=== PATIENT | female | born 1965 | race Asian ===

== ENCOUNTER → 2021-10-02 15:39 | Outpatient (CLI) | payer OTHER, SELFPAY ==
--- NOTE | 2021-10-02 15:42 | DI.MG.S_ITS ---
BILATERAL DIGITAL SCREENING MAMMOGRAM 3D/2D WITH CAD: 10/02/2021 CLINICAL: Routine screening. Comparison is made to exams dated: 12/04/2018 mammogram, 11/11/2017 mammogram, and 09/23/2016 mammogram - outside location. There are scattered fibroglandular elements in both breasts. Current study was also evaluated with a Computer Aided Detection (CAD) system. There is a round asymmetry with an obscured and circumscribed margin and coarse calcifications in the left breast central to the nipple posterior depth. This is more prominent and increased in size. No other significant masses, calcifications, or other findings are seen in either breast. IMPRESSION: INCOMPLETE: NEEDS ADDITIONAL IMAGING EVALUATION The round asymmetry in the left breast is indeterminate. Additional views with possible ultrasound are recommended. This exam was interpreted at Station ID: [id number]. NOTE: For mammograms, a report in lay terms will be sent to the patient. Approximately 15% of breast malignancies will not be visualized mammographically. In the management of a palpable breast mass, a negative mammogram must not discourage biopsy of a clinically suspicious lesion. Electronically Signed By: Lisa [email or web address]:10/02/2021 17:07:31 letter sent: Additional Imaging Needed ACR BI-RADS Category 0: Incomplete 3340F
== END ==
PROVIDERS: Family Provider Family Medicine; PCP Family Medicine; Referring Provider Family Medicine; Visit Provider Family Medicine
DX: Z12.31 Encounter for screening mammogram for malignant neoplasm of breast (principal)
CPT/HCPCS: 77063; 77067

== ENCOUNTER → 2021-11-06 13:48 | Outpatient (CLI) | payer OTHER, SELFPAY ==
--- NOTE | 2021-11-06 | DI.MG.S_ITS ---
UNILATERAL LEFT DIGITAL DIAGNOSTIC MAMMOGRAM 3D/2D WITH ADDITIONAL VIEWS: 11/06/2021 CLINICAL: Additional evaluation requested from prior study. Comparison is made to exams dated: 10/02/2021 mammogram - [facility], 12/04/2018 mammogram, and 11/11/2017 mammogram - outside location. There are scattered fibroglandular elements in left breast. There is an oval low density focal asymmetry with an obscured, indistinct, and circumscribed margin and punctate calcifications in the left breast at 3 o'clock posterior depth. No other significant masses or calcifications are seen in the breast. IMPRESSION: INCOMPLETE: NEEDS ADDITIONAL IMAGING EVALUATION The oval low density focal asymmetry in the left breast is indeterminate. An ultrasound is recommended. Ultrasound will be performed immediately following the current exam. This exam was interpreted at Station ID: [id number]. NOTE: For mammograms, a report in lay terms will be sent to the patient. Approximately 15% of breast malignancies will not be visualized mammographically. In the management of a palpable breast mass, a negative mammogram must not discourage biopsy of a clinically suspicious lesion. Electronically Signed By: Vickey Pham M.D. ddp/:11/06/2021 14:23:40 ACR BI-RADS Category 0: Incomplete [id number]
--- NOTE | 2021-11-06 | DI.US.S_ITS ---
ULTRASOUND OF LEFT BREAST AND AXILLA: 11/06/2021 CLINICAL: Patient returns today to evaluate a focal asymmetry in the left breast. Comparison is made to exams dated: 11/06/2021 mammogram, 10/02/2021 mammogram - [facility], 12/04/2018 mammogram, 11/11/2017 mammogram, and 09/23/2016 mammogram - outside location. Color flow and real-time ultrasound of the left breast axilla were performed on the areas of interest. There is a 0.7 cm x 0.4 cm x 0.7 cm oval mass with an indistinct margin in the left breast at 3 o'clock anterior depth 1 cm from the nipple. This oval mass is hypoechoic with posterior acoustic shadowing. This correlates with mammography findings. Color flow imaging demonstrates that there is no vascularity present. No suspicious enlarged lymph nodes were seen sonographically in the left axilla. IMPRESSION: SUSPICIOUS OF MALIGNANCY The 0.7 cm x 0.4 cm x 0.7 cm oval mass in the left breast is suspicious of malignancy. An ultrasound guided biopsy is recommended. The findings were discussed with the patient at the conclusion of the study by Dr. Hanna. This exam was interpreted at Station ID: [id number]. Electronically Signed By: Vickey ellington/:11/06/2021 15:38:55 letter sent: Biopsy Required Ultrasound BI-RADS: 4 Suspicious for malignancy
== END ==
PROVIDERS: Family Provider Family Medicine; PCP Family Medicine; Referring Provider Family Medicine; Visit Provider Family Medicine
DX: R92.8 Other abnormal and inconclusive findings on diagnostic imaging of breast (principal); N64.89 Other specified disorders of breast; N63.21 Unspecified lump in the left breast, upper outer quadrant
CPT/HCPCS: 76642; 77065; G0279